=== PATIENT | female | born 1965 | race Caucasian/White ===

== ENCOUNTER 2022-12-26 05:22 | Inpatient (IN) | payer BC, OTHER ==
[~2022-12-26] VITALS: Ht 165.1 cm; Wt 59.0 kg
--- NOTE | 2022-12-26 05:34 | NUR ---
Dr Stout in room examing patient.
[2022-12-26] MEDS ORDERED: DIAZ5TAB4 PO (05:36)
[2022-12-26] MEDS ORDERED: GABA600T12 PO (05:36)
[2022-12-26] MEDS ORDERED: LISD20CA PO (05:36)
[2022-12-26] MEDS ORDERED: CITA40TA22 PO (05:36)
[2022-12-26] MEDS ORDERED: MORPHINE SULFATE 4 MG/1 ML DISP.SYRIN IV ONE ×2 (05:45→06:45)
[2022-12-26] MEDS ORDERED: ONDANSETRON 4 MG/2 ML VIAL IV ONE (05:45)
[2022-12-26] MEDS ORDERED: PANTOPRAZOLE SODIUM IV 80 MG in IV DEXTROSE 5% 100 ML IV ONE (05:45)
[2022-12-26 05:49] LABS: HEMATOCRIT 32.8 % (31.2-41.9); MEAN CORPUSCULAR VOLUME 83.9 fL (75.5-95.3); PLATELET COUNT (AUTO) 262 K/uL (179-408)
[2022-12-26] MEDS ORDERED: MORPHINE SULFATE 4 MG/1 ML DISP.SYRIN ONE ×2 (05:53→07:11)
[2022-12-26] MEDS ORDERED: ONDANSETRON 4 MG/2 ML VIAL ONE (05:53)
[2022-12-26] MEDS ORDERED: PANTOPRAZOLE SODIUM 40 MG VIAL ONE (05:53)
[2022-12-26 06:03] LABS: BILIRUBIN,DIRECT 0.1 mg/dL (0.0-0.2); BILIRUBIN,TOTAL 0.3 mg/dL (0.2-1.0); CREATININE 1.1 mg/dL (0.6-1.3); TOTAL PROTEIN, SERUM 7.5 g/dL (6.4-8.2)
[2022-12-26 06:10] LABS: POTASSIUM 4.1 mmol/L (3.5-5.1)
[2022-12-26] MEDS ORDERED: DICYCLOMINE HCL LIQ 10 MG/5 ML UDC PO ONE (06:30)
[2022-12-26] MEDS ORDERED: LIDOCAINE VISCUS 2% 15 ML UDC MM ONE (06:30)
[2022-12-26] MEDS ORDERED: MAG HYDROX/AL HYDROX/SIMETH 30 ML LIQUID UDC PO ONE (06:30)
[2022-12-26] MEDS ORDERED: DICYCLOMINE HCL LIQ 10 MG/5 ML UDC ONE (06:35)
[2022-12-26] MEDS ORDERED: MAG HYDROX/AL HYDROX/SIMETH 30 ML LIQUID UDC ONE (06:35)
[2022-12-26] MEDS ORDERED: LIDOCAINE VISCUS 2% 15 ML UDC ONE (06:35)
[2022-12-26] MEDS ORDERED: IV NS 1000 ML 1,000 ML IV ONE ×2 (06:45→17:15)
--- NOTE | 2022-12-26 06:48 | NUR ---
Lidocaine viscus, bentyl liq, maalox suspension pulled out but not able to return to pyxis. Medication already opened.
[2022-12-26] MEDS ORDERED: IOHEXOL 300MG/ML 100 ML INFUS..BTL ONE (07:01)
[2022-12-26] MEDS ORDERED: SWABABLE VALVE TRANSFER SET EA MC ONE (07:01)
[2022-12-26] MEDS ORDERED: IV NORMAL SALINE 250 ML IV ONE (07:01)
--- NOTE | 2022-12-26 07:16 | NUR ---
Received pt. with SBP of 105/49MAP (49),HR of 68, RR 18. Patient AAOx4. at bedside.
[2022-12-26] MEDS ORDERED: IV NORMAL SALINE 1000 ML BAG IV ONE (08:30)
[2022-12-26] MEDS ORDERED: PIPERACILLIN SODIUM/TAZOBACTAM 3.375 G in IV DEXTROSE 5% 50 ML IV ONE (08:30)
[2022-12-26] MEDS ORDERED: PIPERACILLIN/TAZOBACTAM/D5W 50 ML IV ONE (08:38)
[2022-12-26 10:05] LABS: *BILIRUBIN,URIN NEGATIVE (NEGATIVE); *BLOOD, URINE NEGATIVE (NEGATIVE); *CLARITY,URINE CLEAR (CLEAR); *COLOR,URINE YELLOW (YELLOW); *KETONES,URINE NEGATIVE (NEGATIVE); *URINE HCG, QUAL NEG (NEGATIVE); *UROBILINOGEN,URINE 0.2 E.U./dl (NORMAL); LEUKOCYTE ESTERASE ,URINE NEGATIVE (NEGATIVE); NITRITE, URINE NEGATIVE (NEGATIVE); UGLUCOSE NEGATIVE (NEGATIVE)
--- NOTE | 2022-12-26 10:26 | NUR ---
will contact admitting physician. pt. will be admitted for acute cholycistitis.
--- NOTE | 2022-12-26 10:43 | NUR ---
Pt. will be admitted as telemetry.
--- NOTE | 2022-12-26 10:43 | NUR ---
Dr. Nixon did spoke with Stanford Buckley admiting pt.
--- NOTE | 2022-12-26 10:53 | NUR ---
HR 80 SBP 91/60, RR 16, Pt. AAOx4.
--- NOTE | 2022-12-26 10:53 | NUR ---
Call floor nurse for report, spoke with charge nurse awaiting call back.
--- NOTE | 2022-12-26 11:20 | NUR ---
Report given to Panchito Cadena pt, will be taken up to room 314, stable, no c/of pain sbp of 91/60 HR 80 saturation 96% RA.
--- NOTE | 2022-12-26 11:47 | NUR ---
Taken to room 314 nurse aware. paperwork given to secretary of police.
--- NOTE | 2022-12-26 11:50 | NUR ---
RECEIVED PATIENT FOR ADMISSION FROM ED 57 YEARS FEMALE BY W/CHAIR WITH DX CHOLECYSTITIS ASSISTED INTO BED FIXED AND MADE COMFORTABLE PATIENT IS ALERT AND ORIENTED DENIES PAIN OR DISCOMFORTS AT THIS TIME.ON ROOM AIR WITH NO SOB PICC LINE RN HERE AND INSERTED TRIPLE LUMEN PICC LINE TO HER RIGHT UPPER ARM VERIFIED WITH CHEST XRAY PATIENT HAS A WARREN CATH TO GRAVITY DRAINGE WITH NO HEMATURIA PATIENT ORIENTED TO ROOM AND PROTOCOL MADE COMFORTABLE WILL CONTINUE TO OBSERVE.
--- NOTE | 2022-12-26 12:15 | NUR ---
BILLY JIMENEZ HERE AND SEEN PATIENT WITH ORDERS STATED PATIENT IS NPO EXCEPT MEDS PATIENT AWARE.
[2022-12-26] MEDS ORDERED: IV NS 1000 ML 1,000 ML IV PRN ×3 (12:30→21:00)
[2022-12-26 12:35] VITALS: BP 53/97
[2022-12-26] MEDS ORDERED: ACETAMINOPHEN 325 MG TABLET PO PRN (13:15)
[2022-12-26] MEDS ORDERED: ONDANSETRON 4 MG/2 ML VIAL IV PRN (13:15)
[2022-12-26] MEDS ORDERED: MAGNESIUM HYDROXIDE 30 ML LIQUID UDC PO PRN (13:15)
[2022-12-26] MEDS ORDERED: REMEDY ESSENTIAL ZINC PASTE 113 GM TP PRN (13:15)
[2022-12-26] MEDS ORDERED: ZOLPIDEM 5 MG TABLET PO PRN (13:15)
[2022-12-26] MEDS ORDERED: MORPHINE SULFATE 2 MG/1 ML DISP.SYRIN IV PRN (13:45)
[2022-12-26] MEDS ORDERED: LISD10CA PO (13:53)
[2022-12-26] MEDS ORDERED: PIPERACILLIN SODIUM/TAZOBACTAM 3.375 G in IV DEXTROSE 5% 100 ML IV SCH (14:00)
--- NOTE | 2022-12-26 14:05 | NUR ---
PATIENT PICKED UP BY W/CHAIR TO RADIOLOGY FOR HIDA SCAN ORDERED.
[2022-12-26 16:00] VITALS: BP 93/45
--- NOTE | 2022-12-26 16:22 | NUR ---
PATIENT IS RESTING WITH IV ANTIBIOTICS ORDERED WITH NO ADVERSE OR ALLERGIC REACTIONS AT THIS TIME.
[2022-12-26] MEDS ORDERED: Medication Not On Formulary EA (Gabapentin 600 MG) PO SCH (17:00)
[2022-12-26] MEDS ORDERED: IBUP-1955 PO (17:02)
[2022-12-26] MEDS ORDERED: PANT40TA2 PO (17:02)
[2022-12-26] MEDS ORDERED: KETOROLAC TROMETHAMINE 15 MG INJ IM ONE (17:15)
--- NOTE | 2022-12-26 17:18 | NUR ---
WARREN CATH REMOVED AT THIS TIME IN PREPARATION FOR DISCHARGE PER MAXIMO GARCIA
[2022-12-26] MEDS: GABAPENTIN 300 MG CAPSULE PO SCH (17:19)
--- NOTE | 2022-12-26 17:29 | NUR ---
PATIENT REFUSED VALIUM STATED WILL TAKE AT HOME WHEN SHE GETS HOME.
[2022-12-26] MEDS ORDERED: PIPERACILLIN SODIUM/TAZOBACTAM 3.375 G in IV DEXTROSE 5% 50 ML IV SCH (18:00)
[2022-12-26] MEDS ORDERED: DIAZEPAM 5 MG TABLET PO SCH ×2 (18:00→21:15)
--- NOTE | 2022-12-26 18:33 | NUR ---
PATIENT JUST ATE HER DINNER AND STATED HAS A LITTLE PAIN TORADOL ADMINISTERED ORDERED NS BOLUS IN PROGRESS AT THIS TIME WILL ENDORSE THE COMPLETION OF THE DISCHARGE.PATIENTS VEGA LEFT AND STATED WILL BE BACK TO PICK PATIENT UP WHEN SHE IS READY TO LEAVE THE HOSPITAL.
[2022-12-26 20:00] VITALS: BP 91/46
--- NOTE | 2022-12-26 20:00 | NUR ---
Dr. Hill into visit with no new orders given.
--- NOTE | 2022-12-26 20:52 | NUR ---
Telephone call to GERMAIN Briones, informed that patient BP is low, 86/39 after bolus of 1L NSS. Patient also complaining of slight dizziness. Stated that she has a half-way issue with headache, nothing new per patient. GERMAIN Briones with order to start patient on IV NS at 75ml/hr and hold off on discharging patient tonight. Also discontinue Zosyn per order. All order verified and will carry out.
--- NOTE | 2022-12-26 21:10 | NUR ---
Patient requesting to get her Celexa and Valium tonight since she is not being discharge. Informed ARMORER TECHNICIAN Anselmo and obtain order to change Celexa and Valium order to be given at night. Order noted and will carry out.
[2022-12-26] MEDS ORDERED: CITALOPRAM 20 MG TABLET PO SCH (21:15)
[2022-12-27] VITALS: BP 96/49
[2022-12-27 04:46] VITALS: BP 103/68
--- NOTE | 2022-12-27 05:27 | NUR ---
Slept well during the night. In no acute distress. NSR on tele with Hr of 60/min. IVF infusing. Safety measure maintained and call light within reached.
[2022-12-27 06:25] LABS: HEMATOCRIT 27.9 % (31.2-41.9); MEAN CORPUSCULAR HEMOGLOBIN 28.4 uug (24.7-32.8); MEAN CORPUSCULAR VOLUME 84.3 fL (75.5-95.3); PLATELET COUNT (AUTO) 205 K/uL (179-408)
[2022-12-27 07:13] LABS: MAGNESIUM 2.1 mg/dL (1.8-2.4); PHOSPHOROUS 3.8 mg/dL (2.5-4.9); POTASSIUM 4.2 mmol/L (3.5-5.1)
--- NOTE | 2022-12-27 08:00 | NUR ---
Received pt lying in bed, awake, alert and oriented. With ongoing IVF NS @ 75cc/hr infusing well. Pt. on room air saturating at 96-98%. Not in distress. Tolerating food and oral medications
[2022-12-27] MEDS: GABAPENTIN 300 MG CAPSULE PO SCH ×3 (08:34→08:49)
[2022-12-27] MEDS ORDERED: CITALOPRAM 20 MG TABLET PO SCH (09:00)
[2022-12-27] MEDS ORDERED: LISDEXAMFETAMINE DIMESYLATE 10 MG PO SCH (09:00)
[2022-12-27 09:04] VITALS: BP 108/67
--- NOTE | 2022-12-27 09:59 | NUR ---
Patient has ordered for discharge, Pt. belongings list signed and accounted for. Discharge teaching provided, instructed discharged summary. All questions answered. Discontinued and removed IV line and cleaned. Removed tele monitor. Signed discharge paper.
--- NOTE | 2022-12-27 10:50 | NUR ---
Assisted patient for discharge, ambulating. Discharge properly, left with in stable condition at 1050.
== END 2022-12-27 10:50 | disposition home or self-care (01) | DRG 445 ==
LOC: ER 05:31 → TELE3 11:24
PROVIDERS: ADMIT Nurse Practitioner Acute Care; ATTEND Nurse Practitioner Acute Care
DX: K82.8 Other specified diseases of gallbladder (principal); M32.9 Systemic lupus erythematosus, unspecified; F41.9 Anxiety disorder, unspecified; F11.20 Opioid dependence, uncomplicated; M43.16 Spondylolisthesis, lumbar region; Z79.899 Other long term (current) drug therapy; Z20.822 Contact with and (suspected) exposure to COVID-19; K76.9 Liver disease, unspecified; R16.0 Hepatomegaly, not elsewhere classified; I95.9 Hypotension, unspecified
CPT/HCPCS: 36415; 71045; 76700; 78445; 83605; 83690; 83735; 84100; 84484; 84703; 85025; 87040; 93005; A4663; A9537; C9113; G0378; J1885; J2270; J2405; J2543; J3490; J7040; Q9967